=== PATIENT | male | born 2000 | race Caucasian/White ===

== ENCOUNTER 2020-11-09 09:00 | Outpatient (RCR) | payer OTHER | END 2021-02-07 | disposition home or self-care (01) | LOC: WSOH | DX: S76.311A Strain of muscle, fascia and tendon of the posterior muscle group at thigh level, right thigh, initial encounter (principal); Y99.0 Civilian activity done for income or pay; W01.0XXA Fall on same level from slipping, tripping and stumbling without subsequent striking against object, initial encounter ==

== ENCOUNTER 2021-05-26 01:45 | Emergency (ER) | payer OTHER ==
[~2021-05-26] VITALS: Ht 177.8 cm; Wt 102.3 kg
[2021-05-26 01:51] VITALS: TEMP 98.1
[2021-05-26 03:02] VITALS: BP 153/67; PULSE 81
[2021-05-27] MEDS ORDERED: MEDROL 4MG DOSPA4 MG PO ×3 (00:58→01:06)
== END 2021-05-26 03:10 | disposition home or self-care (01) ==
LOC: COL.ER 01:45
DX: F41.9 Anxiety disorder, unspecified (principal); T43.225A Adverse effect of selective serotonin reuptake inhibitors, initial encounter; F32.A Depression, unspecified; F17.210 Nicotine dependence, cigarettes, uncomplicated; Z88.8 Allergy status to other drugs, medicaments and biological substances; Z79.899 Other long term (current) drug therapy
CPT/HCPCS: J2060; J2405; J7030

== ENCOUNTER 2021-05-26 22:33 | Emergency (ER) | payer OTHER ==
[~2021-05-26] VITALS: Ht 177.8 cm; Wt 102.3 kg
[2021-05-26 22:45] VITALS: TEMP 98.2
[2021-05-26 23:29] LABS: BASO # 0.1 K/mm3 (0.0-0.2); BASO % 0.7 % (0.0-2.0); EOS # 0.1 K/mm3 (0.0-0.7); EOS % 0.7 % (0.0-4.0); GRAN % 62.7 % (42.2-75.2); HEMATOCRIT 41.8 % (42.0-52.0); LYMPH # 2.8 K/mm3 (1.2-3.4); LYMPH % 29.6 % (20.0-51.0); MEAN CELL VOLUME 83 fl (80.0-100.0); MEAN CORPUSCULAR HEMOGLOBIN 30 pg (27-31); MEAN CORPUSCULAR HGB CONC 36 g/dl (33.0-37.0); MEAN PLATELET VOLUME 9.6 fl (7.4-10.4); MONO # 0.6 K/mm3 (0.1-0.6); PLATELET COUNT 283 K/mm3 (130-400); RED BLOOD COUNT 5.01 M/mm3 (4.20-5.60); REDCELL DISTRIBUTION WIDTH-CV 12.2 % (11.5-14.5)
[2021-05-26 23:47] LABS: ALANINE AMINOTRANSFERASE 18 U/L (0-55); ALBUMIN 4.4 gm/dL (3.5-5.0); ALKALINE PHOSPHATASE 51 U/L (40-150); AST,SGOT 14 U/L (5-34); BILIRUBIN,TOTAL 0.4 mg/dL (0.2-1.2); BLOOD UREA NITROGEN 10 mg/dL (9-21); CALCIUM 9.6 mg/dL (8.4-10.2); CHLORIDE 110 mmol/L (98-107); CREATININE, serum 1.02 mg/dL (0.72-1.25); GLUCOSE 121 mg/dL (70-99); POTASSIUM 3.5 mmol/L (3.5-4.5); SODIUM 139 mmol/L (136-145); TOTAL PROTEIN 7.2 gm/dL (6.2-8.1)
[2021-05-26 23:57] LABS: TROPONIN-I < 0.010 ng/mL (0.00-0.033)
[2021-05-26 23:58] LABS: ANION GAP 11 mmol/L (7-16); CARBON DIOXIDE 18 mmol/L (22-29)
[2021-05-27] MEDS ORDERED: MEDROL 4MG DOSPA4 MG PO ×3 (00:58→01:06)
[2021-05-27 01:10] VITALS: BP 124/74; PULSE 59
== END 2021-05-27 01:10 | disposition home or self-care (01) ==
LOC: COL.ER 22:33
PROVIDERS: Emergency Medicine
DX: R07.81 Pleurodynia (principal); R00.0 Tachycardia, unspecified
CPT/HCPCS: J1885; J2060; J7030

== ENCOUNTER 2021-06-25 23:21 | Emergency (ER) | payer OTHER ==
[~2021-06-25] VITALS: Ht 177.8 cm; Wt 100.0 kg
[~2021-06-25 23:21] MED LIST: MEDROL 4MG DOSPA4 MG PO
[2021-06-25 23:34] VITALS: TEMP 97.8
[2021-06-26 00:59] LABS: BASO # 0.1 K/mm3 (0.0-0.2); BASO % 0.5 % (0.0-2.0); EOS # 0.2 K/mm3 (0.0-0.7); EOS % 1.5 % (0.0-4.0); GRAN # 8.2 K/mm3 (1.4-6.5); GRAN % 66.2 % (42.2-75.2); HEMOGLOBIN 15.7 g/dl (13.5-18.0); LYMPH # 3.2 K/mm3 (1.2-3.4); LYMPH % 25.7 % (20.0-51.0); MEAN CELL VOLUME 85 fl (80.0-100.0); MEAN CORPUSCULAR HEMOGLOBIN 30 pg (27-31); MEAN CORPUSCULAR HGB CONC 36 g/dl (33.0-37.0); MEAN PLATELET VOLUME 9.6 fl (7.4-10.4); MONO # 0.7 K/mm3 (0.1-0.6); MONO % 5.9 % (1.7-9.3); PLATELET COUNT 287 K/mm3 (130-400); RED BLOOD COUNT 5.21 M/mm3 (4.20-5.60)
[2021-06-26 01:17] LABS: ALBUMIN 4.2 gm/dL (3.5-5.0); BILIRUBIN,TOTAL 0.7 mg/dL (0.2-1.2); CALCIUM 8.9 mg/dL (8.4-10.2); CREATININE, serum 0.95 mg/dL (0.72-1.25); POTASSIUM 3.9 mmol/L (3.5-4.5); TROPONIN-I 0.013 ng/mL (0.00-0.033)
[2021-06-26 01:48] VITALS: BP 138/86; PULSE 56
== END 2021-06-26 01:48 | disposition home or self-care (01) ==
LOC: COL.ER 23:21
PROVIDERS: Emergency Medicine
DX: R07.89 Other chest pain (principal); F41.9 Anxiety disorder, unspecified

== ENCOUNTER 2021-12-06 01:22 | Emergency (ER) | payer OTHER ==
[~2021-12-06] VITALS: Ht 177.8 cm; Wt 101.4 kg
[2021-12-06 01:31] VITALS: TEMP 97.6
[2021-12-06 02:02] LABS: BASO # 0.1 K/mm3 (0.0-0.2); BASO % 0.7 % (0.0-2.0); EOS # 0.2 K/mm3 (0.0-0.7); EOS % 1.6 % (0.0-4.0); HEMATOCRIT 46.1 % (42.0-52.0); LYMPH # 3.1 K/mm3 (1.2-3.4); LYMPH % 31.5 % (20.0-51.0); MEAN CELL VOLUME 86 fl (80.0-100.0); MEAN CORPUSCULAR HEMOGLOBIN 30 pg (27-31); MEAN CORPUSCULAR HGB CONC 35 g/dl (33.0-37.0); MONO # 0.6 K/mm3 (0.1-0.6); MONO % 5.9 % (1.7-9.3); PLATELET COUNT 320 K/mm3 (130-400); RED BLOOD COUNT 5.37 M/mm3 (4.20-5.60); REDCELL DISTRIBUTION WIDTH-CV 12.4 % (11.5-14.5)
[2021-12-06 02:06] LABS: COLLECTION METHOD CLEAN CATCH
[2021-12-06 02:13] LABS: SQUAMOUS EPITHELIAL None Seen /hpf (0-10); URINE BACTERIA None Seen /hpf (NONE SEEN); URINE RBC 0-2 /hpf (0-2)
[2021-12-06 02:14] LABS: URINE APPEARANCE Clear (CLEAR/HAZY); URINE BLOOD Negative (NEGATIVE); URINE COLOR Yellow (YELLOW); URINE GLUCOSE Negative (NEGATIVE); URINE KETONE Negative (NEGATIVE); URINE NITRATE Negative (NEGATIVE); URINE PROTEIN(semi-quant) Negative (NEGATIVE); URINE UROBILINOGEN 0.2 E.U/dL (0.2-1.0)
[2021-12-06 02:20] LABS: ALBUMIN 4.1 gm/dL (3.5-5.0); BILIRUBIN,TOTAL 0.3 mg/dL (0.2-1.2); CALCIUM 9.4 mg/dL (8.4-10.2); CREATININE, serum 1.12 mg/dL (0.72-1.25); POTASSIUM 4.2 mmol/L (3.5-4.5); TOTAL PROTEIN 7.3 gm/dL (6.2-8.1)
[2021-12-06] MEDS ORDERED: PRIL40 PO (02:41)
[2021-12-06 02:57] VITALS: BP 144/97; PULSE 68
== END 2021-12-06 02:57 | disposition home or self-care (01) ==
LOC: COL.ER 01:22
PROVIDERS: Nurse Practitioner Primary Care
DX: K29.70 Gastritis, unspecified, without bleeding (principal); Z28.310 Unvaccinated for COVID-19
CPT/HCPCS: J1885; J2405; J7030

== ENCOUNTER 2022-06-11 02:01 | Emergency (ER) | payer OTHER ==
[~2022-06-11] VITALS: Ht 177.8 cm; Wt 97.7 kg
[~2022-06-11 02:01] MED LIST changes: +PRIL40 PO; +PROTONIX 40MG T40 MG PO
[2022-06-11 03:14] LABS: STREP SCREEN NEGATIVE
[2022-06-11 03:53] VITALS: TEMP 100.3
[2022-06-11 04:08] VITALS: BP 134/72; PULSE 107
== END 2022-06-11 04:08 | disposition home or self-care (01) ==
LOC: COL.ER 02:01
PROVIDERS: Physician Assistant
DX: B34.9 Viral infection, unspecified (principal); R50.9 Fever, unspecified; Z20.822 Contact with and (suspected) exposure to COVID-19; Z28.310 Unvaccinated for COVID-19
CPT/HCPCS: J7030